=== PATIENT | female | born 1970 | race Caucasian/White ===

== ENCOUNTER 2017-07-24 11:52 | Outpatient (CLI) | payer OTHER ==
[~2017-07-24] VITALS: Ht 162.6 cm; Wt 78.9 kg
[2017-07-24] VITALS (7 sets, daily range): BP systolic 106–120; BP diastolic 61–67; PULSE 67–79
[~2017-07-24 11:52] MED LIST: FLONASEALLERGY NS; MOTRIN 200200 MG/TAB PO
[2017-07-24 13:47] LABS: GLUCOSE,CSF 52 mg/dL (40-70); TOTAL PROTEIN,CSF 44 mg/dL (15-45)
[2017-07-24 14:01] LABS: CSF APPEARANCE CLEAR; CSF COLOR COLORLESS
[2017-07-24 14:04] LABS: CSF POLYMORPHONUCLEAR 0 % (0-6); CSF RBC 45 /mm3 (0-0)
[2017-07-24 14:05] LABS: CSF MONONUCLEAR 100 % (70-100)
[2017-07-26 15:08] LABS: ALBUMIN CSF 13.7 mg/dL (<=27.0); CSF IGG/ALBUMIN 0.09 (<=0.21); CSF,IGG 1.3 mg/dL (<=8.1)
[2017-07-26 22:51] LABS: CSF-IGG INDEX 0.5 (<=0.85); IGG/ALBUMIN SERUM 0.18 (<=0.40)
== END 2017-07-24 15:10 | disposition home or self-care (01) ==
LOC: COL.RAD 11:52
PROVIDERS: Psychiatry & Neurology Neurology
DX: G37.9 Demyelinating disease of central nervous system, unspecified (principal); R90.82 White matter disease, unspecified